=== PATIENT | female | born 1995 | race Caucasian/White ===

== ENCOUNTER 2017-08-21 22:17 | Emergency (ER) | payer BC ==
[2017-08-21] MEDS ORDERED: NS 0.9% 1000 ML* 2,000 ML IV ONE (22:52)
[2017-08-21] MEDS ORDERED: Ketorolac INJ* 30 MG/ML 1 ML VIAL IV PUSH ONE (22:53)
[2017-08-21] MEDS ORDERED: Metoclopramide IV* 5 MG/ML 2 ML VIAL IV SLOW PU ONE (22:53)
[2017-08-21] MEDS ORDERED: diPHENhydraMINE IV* 50 MG/ML 1 ml VIAL (BENADRYL) IV ONE (22:54)
[2017-08-21 23:11] LABS: ABS Basophils 0 10^3/ul (0-0.2); ABS Eosinophils 0 10^3/ul (0-0.6); ABS Lymphocytes 1.2 10^3/ul (1.0-4.8); ABS Monocytes 0.5 10^3/ul (0-0.8); ABS Neutrophils 9.7 10^3/ul (1.5-7.7); ABS Nucleated RBC 0 10^3/ul; Eosinophil % 0 % (0-6); Hematocrit 36 % (35-47); Hemoglobin 12.3 g/dl (12.0-16.0); Lymphocyte % 10.8 % (25-47); Mean Corpuscular HGB Conc 34 g/dl (31-36); Mean Corpuscular Hemoglobin 30 pg (27-31); Mean Corpuscular Volume 87 fL (80-97); Mean Platelet Volume 7.4 um3 (7.4-10.4); Nucleated Red Blood Cells % 0; Platelet Count 245 10^3/ul (150-450); Red Blood Count 4.16 10^6/ul (4.0-5.4); Red Cell Distribution Width 13 % (10.5-15); White Blood Count 11.5 10^3/ul (3.5-10.8)
[2017-08-21 23:41] LABS: EGFR Non-African American 111.5 (>60)
[2017-08-21 23:41] LABS: Urine Appearance Cloudy; Urine Blood 1+ (Negative); Urine Color Amber; Urine Ketones 2+ (Negative); Urine Protein 1+(30 mg/dL) (Negative); Urine Specific Gravity 1.018 (1.010-1.030); Urine Urobilinogen Negative (Negative)
[2017-08-21] MEDS ORDERED: Levofloxacin 500 MG IVPREMIX(* 500 MG/100 ML BAG IVPB ONE (23:45)
[2017-08-21] MEDS ORDERED: NS 0.9% 1000 ML* 1,000 ML IV ONE (23:46)
[2017-08-22 02:36] VITALS: BP 99/62
--- NOTE | 2017-08-22 02:36 | ED ---
Madison Chapman Thomas, scribed for Maisha Stark MD on 08/21/17 at 2248 . Abdominal Pain/Female - HPI Summary HPI Summary: The patient is a 21 year old female complaining of lower abdominal pain for the last three hours. The patient is rated 7/10. The patient also complains of nausea and vomiting. The pain began after the vomiting. The patient denies fever and diarrhea. She last ate today at 14:00. She was diagnosed with mono four months ago. - History of Current Complaint Chief Complaint: EDAbdPain Stated Complaint: ABD PAIN Time Seen by Provider: 08/21/17 22:32 Hx Obtained From: Patient Onset/Duration: Lasting Hours, Still Present Timing: Constant Severity Currently: Moderate Pain Intensity: 7 Pain Scale Used: 0-10 Numeric Location: Other - Lower abd Alleviating Factor(s): Nothing Associated Signs and Symptoms: Positive: Nausea, Vomiting. Negative: Fever, Diarrhea Allergies/Adverse Reactions: Allergies Allergy/AdvReac Type Severity Reaction Status Date / Time doxycycline Allergy Rash Verified 08/21/17 22:24 lactose Allergy Abdominal Verified 08/21/17 22:24 Pain morphine Allergy Vomiting Verified 08/21/17 22:24 Home Medications: Home Medications Amphetamine MIXED SALT TAB* [Adderall TAB*] 10 mg PO DAILY 08/21/17 [History Confirmed 08/21/17] FLUoxetine CAP* [PROzac CAP*] 20 mg PO DAILY 08/21/17 [History Confirmed ] Norethindrone AC-Eth Estradiol [Microgestin 05/12 1-20 mg-Mcg] 1 tab PO DAILY 05/10 [History Confirmed 08/21/17] PMH/Surg Hx/FS Hx/Imm Hx - Immunization History Date of Tetanus Vaccine: assumed utd - college student Date of Influenza Vaccine: none Infectious Disease History: No Infectious Disease History: Denies: Traveled Outside the [place] in Last 30 Days - Family History Known Family History: Positive: Other - Patient denies relevant FHx - Social History Occupation: Student Alcohol Use: Rare Substance Use Type: Reports: None Smoking Status (MU): Never Smoked Tobacco Review of Systems Negative: Fever Positive: Abdominal Pain, Vomiting, Nausea. Negative: Diarrhea All Other Systems Reviewed And Are Negative: Yes Physical Exam - Summary Physical Exam Summary: VITAL SIGNS: Reviewed. GENERAL: Patient is a well-developed and nourished female who is lying comfortable in the stretcher. Patient is not in any acute respiratory distress. HEAD AND FACE: No signs of trauma. No ecchymosis, hematomas or skull depressions. No sinus tenderness. EYES: PERRLA, EOMI x 2, No injected conjunctiva, no nystagmus. EARS: Hearing grossly intact. Ear canals and tympanic membranes are within normal limits. MOUTH: Oropharynx within normal limits. NECK: Supple, trachea is midline, no adenopathy, no JVD, no carotid bruit, no c- spine tenderness, neck with full ROM. CHEST: Symmetric, no tenderness at palpation LUNGS: Clear to auscultation bilaterally. No wheezing or crackles. CVS: Regular rate and rhythm, S1 and S2 present, no murmurs or gallops appreciated. ABDOMEN: She is actively vomiting in the emergency department, however she is not bringing anything up and only wretching. Soft, non-tender. No signs of distention. No rebound no guarding, and no masses palpated. Bowel sounds are normal. EXTREMITIES: FROM in all major joints, no edema, no cyanosis or clubbing. NEURO: Alert and oriented x 3. No acute neurological deficits. Speech is normal and follows commands. SKIN: Dry and warm Triage Information Reviewed: Yes Vital Signs On Initial Exam: Initial Vitals Temp Pulse Resp BP Pulse Ox 96.7 F 92 24 122/76 100 08/21/17 22:22 08/21/17 22:22 08/21/17 22:22 08/21/17 22:22 08/21/17 22:22 Vital Signs Reviewed: Yes Diagnostics - Vital Signs Vital Signs Temp Pulse Resp BP Pulse Ox 08/21/17 22:22 96.7 F 92 24 122/76 100 - Laboratory Result Diagrams: 08/21/17 23:01 08/21/17 23:01 Lab Statement: Any lab studies that have been ordered have been reviewed, and results considered in the medical decision making process. - CT CT Abdomen/Pelvis CT Interpretation: No Acute Changes - Impression: "No definite acute pathology. Moderate amount of diffuse solid stool. Dr. Stark has reviewed this report. CT Interpretation Completed By: Radiologist Abdominal Pain Fem Course/Dx - Course Course Of Treatment: The patient is a 21 year old female complaining of lower abdominal pain for the last three hours. The patient also complains of nausea and vomiting. The pain began after the vomiting. In the ED course, the patient was given Benadryl, Reglan, Toradol, and IV fluids. Bloodwork and urinalysis were obtained. CT Abd/Pel shows no definite acute pathology. Moderate amount of diffuse solid stool. The patient is diagnosed with UTI and vomiting. The patient will be discharged home to follow up with primary care. - Diagnoses Provider Diagnoses: UTI (urinary tract infection), Vomiting Discharge - Sign-Out/Discharge Documenting (check all that apply): Discharge/Admit/Transfer - Discharge Plan Condition: Stable Disposition: HOME Patient Education Materials: Urinary Tract Infection in Women (ED), Acute Nausea and Vomiting (ED) Referrals: [facility] [place] [facility] [Primary Care Provider] - 3 Days Additional Instructions: Follow up at [facility] in three days. Return to the emergency department for new or worsening symptoms. The documentation as recorded by the Madison fallon Thomas accurately reflects the service I personally performed and the decisions made by , Maisha Stark MD.
--- NOTE | 2017-08-22 08:14 | RAD ---
CLINICAL HISTORY: Abdominal pain COMPARISON: None TECHNIQUE: Noncontrast CT examination of the abdomen and pelvis from the lung bases through the initial tuberosities. FINDINGS: VISUALIZED LUNG BASES: The visualized lung bases are grossly clear. There is no pleural effusion. ABDOMEN AND PELVIS: Evaluation of the solid organs and vasculature is limited without intravenous contrast. The liver, spleen, pancreas and adrenal glands are grossly normal in appearance. The gallbladder is normal. The kidneys are normal in appearance without focal mass, calcification or signs of hydronephrosis. Evaluation of the gastrointestinal tract is limited without oral contrast. The small and large bowel are not distended. There is questionable identification of the normal appearing 5 mm appendix best depicted on the sagittal plane images (image 46). There is no definite focal inflammatory change at the base of the cecum that is characteristic of acute appendicitis. There is no gross retroperitoneal or mesenteric lymphadenopathy. An intrauterine device is noted in the uterus which deviates toward the patient's right hemipelvis. The abdominal aorta and iliac arteries are normal in course and diameter. There are no sinister bone lesions. IMPRESSION: 1. Questionable identification of the normal appendix, but there are no definite focal inflammatory changes of the right lower quadrant characteristic of acute appendicitis. 2. Otherwise no acute findings in this CT examination limited by the absence of IV and oral contrast.
--- NOTE | 2017-08-24 10:47 | ED ---
Progress - Progress Note Progress Note: Patient's preliminary urine culture reveals greater than 100,000 Escherichia coli. Patient was started on Levaquin. Sensitivities pending. No change in plan at this time. Course/Dx - Course Course Of Treatment: The patient is a 21 year old female complaining of lower abdominal pain for the last three hours. The patient also complains of nausea and vomiting. The pain began after the vomiting. In the ED course, the patient was given Benadryl, Reglan, Toradol, and IV fluids. Bloodwork and urinalysis were obtained. CT Abd/Pel shows no definite acute pathology. Moderate amount of diffuse solid stool. The patient is diagnosed with UTI and vomiting. The patient will be discharged home to follow up with primary care. - Diagnoses Provider Diagnoses: UTI (urinary tract infection), Vomiting Discharge - Sign-Out/Discharge Documenting (check all that apply): Post-Discharge Follow Up - Discharge Plan Condition: Stable Disposition: HOME Prescriptions: Levofloxacin TAB* [Levaquin TAB*] 500 mg PO DAILY #7 tab Metoclopramide TAB* [Reglan TAB*] 10 mg PO Q6H PRN #20 tab PRN Reason: Nausea/Vomiting Patient Education Materials: Urinary Tract Infection in Women (ED), Acute Nausea and Vomiting (ED) Referrals: [facility] [place] [Primary Care Provider] - 3 Days Additional Instructions: Follow up at [facility] in three days. Return to the emergency department for new or worsening symptoms. - Billing Disposition and Condition Condition: STABLE Disposition: HOME
== END 2017-08-22 02:38 | disposition home or self-care (01) ==
LOC: ED 22:17
DX: N39.0 Urinary tract infection, site not specified (principal); B96.20 Unspecified Escherichia coli [E. coli] as the cause of diseases classified elsewhere; Z32.02 Encounter for pregnancy test, result negative; R11.2 Nausea with vomiting, unspecified; Z88.1 Allergy status to other antibiotic agents; Z88.5 Allergy status to narcotic agent
CPT/HCPCS: 36415; 74176; 80053; 81003; 81015; 82150; 83690; 84702; 85025; 86140; 87077; 87086; 87186; 96365; 96375; 99284; J1200; J1885; J1956; J2765

== ENCOUNTER 2018-06-29 22:42 | Emergency (ER) | payer SELFPAY ==
--- NOTE | 2018-06-29 23:12 | ED ---
Psychiatric Complaint - HPI Summary HPI Summary: This patient is a 22 year old F brought in by [employer] police with a chief complaint of thoughts of harming herself since just FREIGHT [employer]KE [employer]. She was on the phone with her parents, who called [employer] police, and she was brought her because of protocol. She states that her medication has not been working and she feels exhausted. The patient regularly sees a therapist, in [place], who prescribes her medication. The patient has never been hospitalized before. PMHX Depression, anxiety. RX Prozac, Adderall. - History Of Current Complaint Chief Complaint: EDMentalHealth Time Seen by Provider: 06/29/18 23:03 Hx Obtained From: Patient Timing: Constant Has Suicidal: Reports: Thoughts - Allergies/Home Medications Allergies/Adverse Reactions: Allergies Allergy/AdvReac Type Severity Reaction Status Date / Time doxycycline Allergy Rash Verified 06/29/18 22:49 lactose Allergy Abdominal Verified 06/29/18 22:49 Pain morphine Allergy Vomiting Verified 06/29/18 22:49 PMH/Surg Hx/FS Hx/Imm Hx Sensory History: Denies: Hx Deafness Psychiatric History: Reports: Hx Anxiety, Hx Attention Deficit Hyperactivity Disorder, Hx Depression - Immunization History Date of Tetanus Vaccine: assumed utd - college student Date of Influenza Vaccine: none Infectious Disease History: No Infectious Disease History: Denies: Traveled Outside the [place] in Last 30 Days - Family History Known Family History: Positive: Other - Patient denies relevant FHx - Social History Alcohol Use: Rare Substance Use Type: Reports: None Smoking Status (MU): Never Smoked Tobacco Review of Systems Positive: Fatigue Positive: Anxious, Depressed All Other Systems Reviewed And Are Negative: Yes Physical Exam - Summary Physical Exam Summary: VITAL SIGNS: Reviewed. GENERAL: Patient is a well-developed and nourished female who is lying comfortable in the stretcher. Patient is not in any acute respiratory distress. Denies SI/HI. HEAD AND FACE: No signs of trauma. No ecchymosis, hematomas or skull depressions. No sinus tenderness. EYES: PERRLA, EOMI x 2, No injected conjunctiva, no nystagmus. EARS: Hearing grossly intact. Ear canals and tympanic membranes are within normal limits. MOUTH: Oropharynx within normal limits. NECK: Supple, trachea is midline, no adenopathy, no JVD, no carotid bruit, no c- spine tenderness, neck with full ROM. CHEST: Symmetric, no tenderness at palpation LUNGS: Clear to auscultation bilaterally. No wheezing or crackles. CVS: Regular rate and rhythm, S1 and S2 present, no murmurs or gallops appreciated. ABDOMEN: Soft, non-tender. No signs of distention. No rebound no guarding, and no masses palpated. Bowel sounds are normal. EXTREMITIES: FROM in all major joints, no edema, no cyanosis or clubbing. NEURO: Alert and oriented x 3. No acute neurological deficits. Speech is normal and follows commands. SKIN: Dry and warm Triage Information Reviewed: Yes Vital Signs On Initial Exam: Initial Vitals Temp Pulse Resp BP Pulse Ox 98.2 F 81 16 138/92 100 06/29/18 22:46 06/29/18 22:46 06/29/18 22:46 06/29/18 22:46 06/29/18 22:46 Vital Signs Reviewed: Yes Diagnostics - Vital Signs Vital Signs Temp Pulse Resp BP Pulse Ox 06/29/18 22:46 98.2 F 81 16 138/92 100 - Laboratory Lab Statement: Any lab studies that have been ordered have been reviewed, and results considered in the medical decision making process. Course/Dx - Course Course Of Treatment: This patient is a 22 year old F brought in by [employer] police with a chief complaint of thoughts of harming herself since just FREIGHT [employer]KE [employer]. She was on the phone with her parents, who called [employer] police, and she was brought her because of protocol. She states that her medication has not been working and she feels exhausted. We discussed patient care with Dr. Busch and they recommended discharge. Patient will be discharged with follow up from [facility]. The patient is agreeable with this plan. - Differential Dx/Clinical Impression Provider Diagnosis: Depression Discharge - Sign-Out/Discharge Documenting (check all that apply): Patient Departure - discharge Patient Received Moderate/Deep Sedation with Procedure: No - Discharge Plan Condition: Stable Disposition: HOME Patient Education Materials: Depression (ED) Referrals: [facility] - [place] [Primary Care Provider] - Additional Instructions: Per completion of a mental health evaluation, you are cleared for release and do not require inpatient psychiatric hospitalization at this time. Please go to nearest emergency room or call 911 if safety concerns arise or condition worsens. Contact [facility] for appointment: 24 hour crisis line [phone] Hours: Sunday: All services 8:30 am 5:00 pm; Limited services 5:00 7:00 pm Sunday: All services 8:30 am 5:00 pm; Limited services 5:00 7:00 pm Sunday: All services 10:00 am 5:00 pm; Limited services 5:00 7:00 pm : All services 8:30 am 5:00 pm; Limited services 5:00 7:00 pm Sunday: 8:30 am 5:00 pm Sunday: 10:00 am 4:00 pm Sunday: Closed Important Phone Numbers: [facility] [phone] Suicide Prevention and Crisis Services........................ [phone] [facility]............................ [phone] ([phone]) [facility]....................... [phone] Alcoholics Anonymous............................................... [facility].............. [phone] [facility] Police.............................................. - Attestation Statements Document Initiated by Scribe: Yes Documenting Scribe: Bernard Sierra Provider For Whom Scribe is Documenting (Include Credential): Maisha Stark MD Scribe Attestation: Bernard Chapman, scribed for Maisha Stark MD on 06/30/18 at 0052. Status of Scribe Document: Ready
[2018-06-30 00:49] VITALS: BP 109/65
== END 2018-06-30 00:49 | disposition home or self-care (01) ==
LOC: ED 22:42
DX: F32.9 Major depressive disorder, single episode, unspecified (principal); Z88.1 Allergy status to other antibiotic agents; Z88.5 Allergy status to narcotic agent
CPT/HCPCS: 99284